=== PATIENT | female | born 1985 | race Hispanic/Latino ===

== ENCOUNTER 2025-01-17 21:42 | Emergency (ER) | payer SELFPAY ==
[2025-01-17] MEDS ORDERED: Acetaminophen 500 MG TAB ONE (22:18)
== END 2025-01-17 23:20 | disposition home or self-care (01) ==
LOC: CSHERS 21:42
DX: U07.1 COVID-19 (principal); F17.210 Nicotine dependence, cigarettes, uncomplicated
CPT/HCPCS: 87081; 87428; 87430; 99283